=== PATIENT | female | born 1995 | race Caucasian/White ===

== ENCOUNTER 2019-12-17 22:46 | Emergency (ER) | payer MEDICAID ==
[~2019-12-17] VITALS: Ht 162.6 cm; Wt 61.7 kg
[2019-12-17 22:57] VITALS: Ht 162.6 cm; Wt 61.7 kg
[2019-12-18 00:11] VITALS: BP 132/84
== END 2019-12-18 00:09 | disposition left against medical advice (07) ==
LOC: ED 22:46
DX: Z53.21 Procedure and treatment not carried out due to patient leaving prior to being seen by health care provider (principal)